=== PATIENT | male | born 1970 | race Caucasian/White ===

== ENCOUNTER 2022-05-25 16:51 | Emergency (ER) | payer OTHER, SELFPAY ==
[2022-05-25 17:10] VITALS: O2SAT 98
[2022-05-25 17:16] VITALS: BP 167/104; PULSE 76; RESP 18; TEMP 36.7; BMI 38.4
--- NOTE | 2022-05-25 17:43 | CRLHL7_ITS ---
For Patients: As a result of the Century Cures Act, medical imaging exams and procedure reports are released immediately into your electronic medical record. You may view this report before your referring provider. If you have questions, please contact your health care provider. INDICATION: Left-sided abdominal pain. TECHNIQUE: CT abdomen and pelvis acquired with 147 cc Isovue 370 IV contrast. COMPARISON: None. FINDINGS: Lower chest: Scattered dependent atelectasis. Liver: Mild hepatic steatosis. No suspicious masses. Gallbladder and bile ducts: Unremarkable. No stones or inflammation. No biliary dilatation. Pancreas: Unremarkable. No mass or inflammation. Spleen: Unremarkable. Normal in size. No masses. Adrenal glands: Unremarkable. No nodules. Kidneys: Left superior pole hypodensity, too small to characterize. No suspicious masses, stones, or hydronephrosis. GI tract: Colonic diverticulosis. Focal area of inflammation in the mesentry adjacent to the distal descending colon. Normal in caliber. Appendectomy. Vasculature: Abdominal aorta is normal in caliber. Mesenteric arteries are patent. Lymph nodes: No lymphadenopathy. Peritoneum/Abdominal Wall: Subtle nonspecific left upper quadrant emily mesentry. No sign of mass or infiltration. No free air or significant free fluid. Pelvis: Unremarkable. Bones: Right hip arthroplasty causing streak artifact. IMPRESSION: Colonic diverticulosis. Additional focal area of inflammation in the mesentery adjacent to the distal descending colon, but not near any definite diverticula. Differential includes epiploic appendagitis versus very mild uncomplicated diverticulitis. Recommend correlation with laboratory data. Please note that all CT scans at this facility use dose modulation, iterative reconstruction, and/or weight-based dosing when appropriate to reduce radiation dose to as low as reasonably achievable. Dictated by Otto Hayes MD @ 05/25/2022 6:49:20 PM (Electronically Signed)
[2022-05-25 17:49] LABS: Appearance Urine Clear (Clear); Bilirubin Urine Negative (Negative); Blood Urine Negative (Negative); Color Urine Yellow (Yellow); Glucose Urine Negative (Negative); Ketones Urine Negative (Negative); Leukocyte Esterase Urine Negative (Negative); Nitrite Urine Negative (Negative); Protein Urine Negative (Negative); Specific Gravity Urine 1.025 (1.000-1.030); Urobilinogen Urine 0.2 (0.2-1.0)
[2022-05-25 17:54] LABS: Basophils Absolute Auto 0.07 K/uL (0.00-0.30); Basophils Percent Auto 0.9 % (0.0-3.0); Eosinophils Absolute Auto 0.33 K/uL (0.00-0.50); Hematocrit 45.5 % (37.0-53.0); Hemoglobin* 15.4 gm/dL (13.5-17.5); Immature Granulocytes Abs Auto 0.04 K/uL (0.00-0.30); Immature Granulocytes Pct Auto 0.5 %; Lymphocytes Absolute Auto 2.32 K/uL (0.90-2.90); Lymphocytes Percent Auto 28.3 % (20-44); Mean Corpuscular HGB Conc 34 gm/dL (32-36); Mean Corpuscular Hemoglobin 29 pg (26-34); Mean Corpuscular Volume 84 fL (80-100); Monocytes Percent Auto 12.1 % (0.0-11.0); Neutrophils Absolute Auto 4.46 K/uL (1.7-7.0); Neutrophils Percent Auto 54.2 % (42.0-72.0); Platelet Count* 246 K/uL (140-440); RDW Coefficient of Variation % 12.1 % (11.5-15.5); Red Blood Count 5.41 m/uL (4.30-5.90); White Blood Count* 8.21 K/uL (4.50-11.00)
[2022-05-25 17:57] LABS: Slide Review Reflex No
[2022-05-25] MEDS: 0.9 % SODIUM CHLORIDE 1000 ml 1,000 ML IV (18:00)
[2022-05-25 18:20] LABS: Chloride* 106 mmol/L (96-114); Sodium* 141 mmol/L (135-149)
[2022-05-25 18:23] LABS: Creatinine* 0.7 mg/dL (0.5-1.5); Est. Creatinine Clearance* 141.89; Estimated Glomerular Filt Rate 110 ml/min
[2022-05-25 18:24] LABS: Albumin* 4.5 g/dL (3.3-5.0); Blood Urea Nitrogen* 17 mg/dL (7-30); Calcium* 9.4 mg/dL (8.4-10.6); Carbon Dioxide* 28 mmol/L (20-32); Glucose* 89 mg/dL (60-115)
[2022-05-25 18:26] LABS: Bilirubin Direct* 0.2 mg/dL (0.0-0.5); Bilirubin Total* 0.6 mg/dL (0.1-1.5); Total Protein* 7.4 g/dL (6.0-8.3)
[2022-05-25 18:27] LABS: Alanine Aminotransferase* 35 U/L (4-50); Alkaline Phosphatase* 76 U/L (40-150); Aspartate Amino Transferase* 37 U/L (12-35); C Reactive Protein* 0.9 mg/dL (0.5-1.0); Lipase* 133 U/L (23-300)
[2022-05-25] MEDS: KETOROLAC 30 MG/ML inj IVP (19:45)
[2022-05-25] MEDS: CIPROFLOXACIN 500 MG TABLET PO (19:53)
[2022-05-25] MEDS: metroNIDAZOLE 500 MG TABLET PO (19:53)
[2022-05-25 20:08] VITALS: BP 135/78; PULSE 84; RESP 16; TEMP 36.7; O2SAT 98
[2022-05-25 20:09] VITALS: TEMP 36.7
[2022-05-25 20:11] VITALS: BP 135/78; PULSE 84; RESP 16; TEMP 36.7
--- NOTE | 2022-05-25 23:11 | ED.ABDPAIN ---
HPI - Abdominal Pain General Chief Complaint: Abdominal Pain Stated Complaint: Abdominal Pain Time Seen by Provider: 05/25/22 17:29 History of Present Illness HPI narrative: 51-year-old man presenting to the emergency department with complaint 2 days of increasing left-sided abdominal pain. This is probably going on day 3. About a week ago had some cold symptoms for which he took some pseudoephedrine which has constipated him in the past but he has had regular bowel movements, daily. No diarrhea. No fever. No melena or hematochezia described. No nausea. Any movement makes the pain worse. Holding still makes the pain better. No dysuria frequency urgency. No numbness or tingling in his lower extremities. No focal weakness. Related Data Previous Rx's Medication Instructions Recorded ciprofloxacin HCl 500 mg tablet 500 mg PO BID 8 days #16 tabs 05/25/22 metronidazole 500 mg tablet 500 mg PO TID 8 days #24 tabs 05/25/22 Allergies Allergy/AdvReac Type Severity Reaction Status Date / Time No Known Drug Allergies Allergy Verified 05/25/22 17:58 Review of Systems Status of ROS Reports: 10 or more systems reviewed and unremarkable except as noted in History and below [facility] Medical History Hypertension Hypothyroidism Surgical History (Updated 05/25/22 @ 20:07 by Javier Busch RN) History of knee surgery Social History Smoking Status: Never smoker Do you use any of these nicotine containing products: None How often do you have a drink containing alcohol: never How often do you have six or more drinks on one occasion: Never AUDIT-C Alcohol total score: 0 Non-prescribed substance use: denies use Exam Narrative: Exam Narrative: Large man. Pleasant. Clearly uncomfortable. Speaking easily. Cranial nerves 2-12 look to be intact. Skin is warm and dry. Extremities without edema. Well perfused. Oropharynx is moist. Lungs are clear. Heart with regular rate and rhythm. No murmur rub or gallop. Abdomen is overweight soft and very tender in the left mid abdomen. No peritoneal signs. No masses appreciated. Const: Vital Signs, click to edit/add: Vital Signs - 24 hr 05/25/22 17:16 05/25/22 17:10 05/25/22 20:08 Temperature 98.0 F 98.0 F Pulse Rate [Right Pulse Oximeter] 76 84 Respiratory Rate 18 16 Blood Pressure [Ri ght Upper Arm] 167/104 H 135/78 Pulse Oximetry 98 98 Oxygen Delivery Me thod Room Air Room Air 05/25/22 20:09 05/25/22 20:11 Temperature 98.0 F 98.0 F Pulse Rate [Right Pulse Oximeter] 84 Respiratory Rate 16 Blood Pressure [Ri ght Upper Arm] 135/78 Pulse Oximetry Oxygen Delivery Me thod Documenting provider has reviewed patient's vital signs: yes Course Vital Signs Vital signs: Initial Vital Signs Pulse Oximetry 98 05/25/22 17:10 Vital Signs Pulse Oximetry 98 05/25/22 17:10 Temperature 98.0 F 05/25/22 20:11 Pulse Rate 84 05/25/22 20:11 Respiratory Rate 16 05/25/22 20:11 Blood Pressure 135/78 05/25/22 20:11 Pulse Oximetry 98 05/25/22 20:08 Oxygen Delivery Method 05/25/22 20:08 MDM - Abdominal Pain MDM Narrative Medical decision making narrative: Given degree of discomfort I think imaging would be in order. Leading differential would include diverticulitis. Ordered for IV fluids and imaging. Ultimately he declined morphine and at the same time ketorolac as well. Unremarkable labs and CT scan by my read looked to show some mild inflammatory changes about the colon at the left mid/distal colon. Radiology over-read noting same and that diverticulosis is present. Differential included epiploic appendagitis and mild diverticulitis. I think watchful waiting and pain management could be done mode after discussion we decided to proceed with antibiotics. He will receive 1st dose of ciprofloxacin and metronidazole here in the emergency department. After clarifying this understanding was also given ketorolac. Lab Data Attestation: I reviewed the patient's lab results. Labs: Lab Results 05/25/22 05/25/22 05/25/22 Range/Units 17:15 17:45 17:45 WBC 8.21 (4.50-11.00) K/uL RBC 5.41 (4.30-5.90) m/uL Hgb 15.4 (13.5-17.5) gm/dL Hct 45.5 (37.0-53.0) % MCV 84 (80-100) fL MCH 29 (26-34) pg MCHC 34 (32-36) gm/dL RDW Coeff of Stew 12.1 (11.5-15.5) % Plt Count 246 (140-440) K/uL Neut % (Auto) 54.2 (42.0-72.0) % Lymph % (Auto) 28.3 (20-44) % Kay % (Auto) 12.1 H (0.0-11.0) % Eos % (Auto) 4.0 (0.0-7.0) % Baso % (Auto) 0.9 (0.0-3.0) % Neut # (Auto) 4.46 (1.7-7.0) K/uL Lymph # (Auto) 2.32 (0.90-2.90) K/uL Kay # (Auto) 1.00 H (0.00-0.90) K/UL Eos # (Auto) 0.33 (0.00-0.50) K/uL Baso # (Auto) 0.07 (0.00-0.30) K/uL Sodium 141 (135-149) mmol/L Potassium 4.0 (3.6-5.1) mmol/L Chloride 106 (96-114) mmol/L Carbon Dioxide 28 (20-32) mmol/L BUN 17 (7-30) mg/dL Creatinine 0.7 (0.5-1.5) mg/dL Estimated Creat Clear 141.89 Estimated GFR 110 ml/min Glucose 89 (60-115) mg/dL Calcium 9.4 (8.4-10.6) mg/dL Total Bilirubin (0.1-1.5) mg/dL Direct Bilirubin (0.0-0.5) mg/dL AST (12-35) U/L ALT (4-50) U/L Alkaline Phosphatase (40-150) U/L C-Reactive Protein 0.9 (0.5-1.0) mg/dL Total Protein (6.0-8.3) g/dL Albumin (3.3-5.0) g/dL Lipase (23-300) U/L Urine Color Yellow (Yellow) Urine Appearance Clear (Clear) Urine pH 6.0 (5.0-8.5) Ur Specific Krum 1.025 (1.000-1.030) Urine Protein Negative (Negative) Urine Glucose (UA) Negative (Negative) Urine Ketones Negative (Negative) Urine Blood Negative (Negative) Urine Nitrite Negative (Negative) Urine Bilirubin Negative (Negative) Urine Urobilinogen 0.2 (0.2-1.0) Ur Leukocyte Esterase Negative (Negative) 05/25/22 Range/Units 17:45 WBC (4.50-11.00) K/uL RBC (4.30-5.90) m/uL Hgb (13.5-17.5) gm/dL Hct (37.0-53.0) % MCV (80-100) fL MCH (26-34) pg MCHC (32-36) gm/dL RDW Coeff of Stew (11.5-15.5) % Plt Count (140-440) K/uL Neut % (Auto) (42.0-72.0) % Lymph % (Auto) (20-44) % Kay % (Auto) (0.0-11.0) % Eos % (Auto) (0.0-7.0) % Baso % (Auto) (0.0-3.0) % Neut # (Auto) (1.7-7.0) K/uL Lymph # (Auto) (0.90-2.90) K/uL Kay # (Auto) (0.00-0.90) K/UL Eos # (Auto) (0.00-0.50) K/uL Baso # (Auto) (0.00-0.30) K/uL Sodium (135-149) mmol/L Potassium (3.6-5.1) mmol/L Chloride (96-114) mmol/L Carbon Dioxide (20-32) mmol/L BUN (7-30) mg/dL Creatinine (0.5-1.5) mg/dL Estimated Creat Clear Estimated GFR ml/min Glucose (60-115) mg/dL Calcium (8.4-10.6) mg/dL Total Bilirubin 0.6 (0.1-1.5) mg/dL Direct Bilirubin 0.2 (0.0-0.5) mg/dL AST 37 H (12-35) U/L ALT 35 (4-50) U/L Alkaline Phosphatase 76 (40-150) U/L C-Reactive Protein (0.5-1.0) mg/dL Total Protein 7.4 (6.0-8.3) g/dL Albumin 4.5 (3.3-5.0) g/dL Lipase 133 (23-300) U/L Urine Color (Yellow) Urine Appearance (Clear) Urine pH (5.0-8.5) Ur Specific Krum (1.000-1.030) Urine Protein (Negative) Urine Glucose (UA) (Negative) Urine Ketones (Negative) Urine Blood (Negative) Urine Nitrite (Negative) Urine Bilirubin (Negative) Urine Urobilinogen (0.2-1.0) Ur Leukocyte Esterase (Negative) Discharge Plan Discharge Clinical Impression: Abdominal pain Patient Disposition: Home w/ Parent or Adult Condition: Stable Additional Instructions: In differential remains mild diverticulitis or possibly epiploic appendagitis. Can take the Tuckerman for pain. If you taking that might want to pair with senna to decrease chance of constipation; maybe 1-2 tablets a day. Can take ibuprofen up to 800 mg per dose. Can take up to 1000 mg of acetaminophen per dose. Remember that each tablet of Tuckerman has 325 mg of acetaminophen in it. Tuckerman from [facility]. Focus on hydration. Return for inability to control your pain, associated fever, repeated vomiting. Prescriptions: New metronidazole 500 mg tablet 500 mg PO TID 8 Days Qty: 24 0RF ciprofloxacin HCl 500 mg tablet 500 mg PO BID 8 Days Qty: 16 0RF Follow Up/Referrals: Provider,Not a Local [Primary Care Provider] - Stand Alone Forms: [employer] Info Instructions
== END 2022-05-25 20:11 | disposition home or self-care (01) ==
PROVIDERS: Emergency Provider Family Medicine
DX: R10.9 Unspecified abdominal pain (principal)
CPT/HCPCS: 36415; 74177; 80048; 80076; 81003; 83690; 85025; 86140; 94761; 96361; 96374; 99284; A9270; J1885; J7030; Q9967